=== PATIENT | female | born 1940 | race Caucasian/White ===

== ENCOUNTER 2018-04-13 06:06 | Observation (INO) | payer MEDICARE, BC ==
[~2018-04-13] VITALS: Ht 157.5 cm; Wt 59.7 kg
[~2018-04-13 06:06] MED LIST: ACIDOPHILUS1 EAC1 PO; ASPI81EC PO; CALACE667G; CHLO4; CIPR500 PO; CITA20 PO; CONESTTC VAG; ERGO400 PO; Flagyl500 MG PO; LEVFLO500 PO; METR500 PO; MULVITA PO; NITR100; PHENA200 PO; SULTRIDS PO; TOCO400 PO; VAGIFEM10 MCG; Vitamin B Comple1 EA PO
[2018-04-13 08:03] LABS: BASOPHILS ABSOLUTE AUTO 0.06 K/mm3 (0.00-0.23); BASOPHILS PERCENT AUTO 0 % (0-2); EOSINOPHILS ABSOLUTE AUTO 0.03 K/mm3 (0.00-0.68); EOSINOPHILS PERCENT AUTO 0 % (0-6); Hemoglobin 12.3 g/dL (11.5-16.0); IMMATURE GRAN ABSOLUTE AUTO 0.04 K/mm3 (0.00-0.10); IMMATURE GRAN PERCENT AUTO 0 % (0-1); LYMPHOCYTES ABSOLUTE AUTO 0.43 K/mm3 (0.84-5.20); LYMPHOCYTES PERCENT AUTO 3 % (21-46); MONOCYTES ABSOLUTE AUTO 0.82 K/mm3 (0.16-1.47); MONOCYTES PERCENT AUTO 6 % (4-13); Mean Corpuscular HGB Conc 33.2 g/dL (31.5-36.5); Mean Corpuscular Volume 93 fL (80-100); Mean Platelet Volume 10.4 fL (9.1-12.4); NEUTROPHILS ABSOLUTE AUTO 12.66 K/mm3 (1.96-9.15); NEUTROPHILS PERCENT AUTO 90 % (41-73); Platelet Count 224 K/mm3 (150-400); RDW Coefficient Variation 12.6 % (11.7-14.2); RDW Standard Deviation 43.3 fL (35.1-46.3); Red Blood Cell Count 3.97 M/mm3 (3.80-5.20); White Blood Cell Count 14.04 K/mm3 (4.00-11.30)
[2018-04-13 08:34] LABS: Alanine Aminotransfer (ALT/SGP 18 U/L (12-78); Albumin, Blood 3.9 g/dL (3.4-5.0); Albumin/Globulin Ratio 1.1 (0.8-1.8); Alk Phos 52 U/L (50-136); Anion Gap 10 mmol/L (6-16); Aspartate Aminotrans (AST/SGOT 22 U/L (12-37); Bilirubin, Total 0.6 mg/dL (0.1-1.0); Blood Urea Nitrogen 21 mg/dL (8-24); Bun/Creatinine Ratio 31.8 (12.0-20.0); CO2, Blood 25 mmol/L (21-32); Calcium, Blood 8.4 mg/dL (8.5-10.1); Chloride, Blood 104 mmol/L (98-108); Creatinine, Blood 0.66 mg/dL (0.40-1.00); Globulin, Blood 3.4 g/dL (2.2-4.0); Glomerular Filtration Rate >60 (60-); Glucose, Blood 128 mg/dL (70-99); Potassium, Blood 3.6 mmol/L (3.5-5.5); Sodium, Blood 139 mmol/L (136-145); Total Protein, Blood 7.3 g/dL (6.4-8.2); Troponin I <0.015 ng/mL (0.000-0.040)
[2018-04-13 09:22] LABS: Source, Urine Clean Catch
[2018-04-13 09:28] LABS: Bilirubin, Urine Neg (Neg); Blood, Urine 1+ (Neg); Glucose Qualitative, Urine Neg (Neg); Ketones, Urine Neg (Neg); Leukocyte Esterase, Urine Neg (Neg); Nitrite, Urine Neg (Neg); Protein, Urine 1+ (Neg); Urobilinogen, Urine NORM (Normal)
[2018-04-13 09:52] LABS: Appearance, Urine Clear (Clear); Color, Urine Yellow (P-Yellow)
[2018-04-13 09:54] LABS: Bacteria Not Seen /hpf; Red Blood Cells, Urine 0-2 /hpf (0-2); Squamous Epithelial Cells Few /hpf (Few); White Blood Cells, Urine Not Seen /hpf (0-5)
[2018-04-13 11:26] LABS: Adenovirus F 40/41 Not Detected (NOT DETECT); Astrovirus Not Detected (NOT DETECT); Campylobacter Sp Not Detected (NOT DETECT); Cryptosporidium Not Detected (NOT DETECT); Cyclospora Cayetanensis Not Detected (NOT DETECT); E. Coli O157 Not Detected (NOT DETECT); Entamoeba Histolytica Not Detected (NOT DETECT); Enteroaggregative E. coli-EAEC Not Detected (NOT DETECT); Enteropathogenic E. coli-EPEC Not Detected (NOT DETECT); Enterotoxigenic E. coli-ETEC Not Detected (NOT DETECT); Giardia Lamblia Not Detected (NOT DETECT); Plesiomonas Shigelloides Not Detected (NOT DETECT); Rotavirus A Not Detected (NOT DETECT); Salmonella Sp Not Detected (NOT DETECT); Sapovirus Not Detected (NOT DETECT); Shiga Toxin-prod E. coli-STEC Not Detected (NOT DETECT); Shigella/Enteroin E. coli-EIEC Not Detected (NOT DETECT); Vibrio Cholerae Not Detected (NOT DETECT); Vibrio Sp Not Detected (NOT DETECT); Yersinia Enterocolitica Not Detected (NOT DETECT)
[2018-04-13] MEDS ORDERED: ASPI81CH PO (12:58)
[2018-04-13 13:06] LABS: Norovirus GI/GII Detected (NOT DETECT)
[2018-04-14 05:03] LABS: BASOPHILS ABSOLUTE AUTO 0.03 K/mm3 (0.00-0.23); BASOPHILS PERCENT AUTO 1 % (0-2); EOSINOPHILS ABSOLUTE AUTO 0.06 K/mm3 (0.00-0.68); EOSINOPHILS PERCENT AUTO 1 % (0-6); Hematocrit 30.8 % (33.0-51.0); IMMATURE GRAN ABSOLUTE AUTO 0.01 K/mm3 (0.00-0.10); IMMATURE GRAN PERCENT AUTO 0 % (0-1); LYMPHOCYTES ABSOLUTE AUTO 0.87 K/mm3 (0.84-5.20); LYMPHOCYTES PERCENT AUTO 16 % (21-46); MONOCYTES ABSOLUTE AUTO 0.46 K/mm3 (0.16-1.47); MONOCYTES PERCENT AUTO 8 % (4-13); Mean Corpuscular HGB 30.1 pg (26.0-34.0); Mean Corpuscular HGB Conc 32.5 g/dL (31.5-36.5); Mean Corpuscular Volume 93 fL (80-100); Mean Platelet Volume 10.8 fL (9.1-12.4); NEUTROPHILS ABSOLUTE AUTO 4.13 K/mm3 (1.96-9.15); NEUTROPHILS PERCENT AUTO 74 % (41-73); Platelet Count 192 K/mm3 (150-400); RDW Coefficient Variation 13.1 % (11.7-14.2); RDW Standard Deviation 44.3 fL (35.1-46.3); Red Blood Cell Count 3.32 M/mm3 (3.80-5.20); White Blood Cell Count 5.56 K/mm3 (4.00-11.30)
[2018-04-14 05:25] LABS: Anion Gap 10 mmol/L (6-16); Blood Urea Nitrogen 10 mg/dL (8-24); Bun/Creatinine Ratio 21.2 (12.0-20.0); CO2, Blood 24 mmol/L (21-32); Calcium, Blood 7.6 mg/dL (8.5-10.1); Chloride, Blood 110 mmol/L (98-108); Creatinine, Blood 0.47 mg/dL (0.40-1.00); Glomerular Filtration Rate >60 (60-); Glucose, Blood 82 mg/dL (70-99); Potassium, Blood 3.2 mmol/L (3.5-5.5); Sodium, Blood 144 mmol/L (136-145)
[2018-04-14] MEDS ORDERED: ONDA4ODT SL (09:07)
[2018-04-14] MEDS ORDERED: Micro-K10 MEQ PO (09:08)
== END 2018-04-14 11:01 | disposition home or self-care (01) ==
LOC: ER 06:06 → MEDS 06:07 → ENPENDDIS 04-14 09:01 → MEDS 04-14 11:01
PROVIDERS: Emergency Medicine; Internal Medicine
DX: E86.9 Volume depletion, unspecified (principal); I95.9 Hypotension, unspecified; K52.9 Noninfective gastroenteritis and colitis, unspecified; E87.6 Hypokalemia; R74.8 Abnormal levels of other serum enzymes; D64.9 Anemia, unspecified; E78.5 Hyperlipidemia, unspecified; Z79.82 Long term (current) use of aspirin; Z79.899 Other long term (current) drug therapy; Z79.01 Long term (current) use of anticoagulants; Z88.5 Allergy status to narcotic agent
CPT/HCPCS: 36415; 74176; 80048; 80053; 81001; 83690; 84484; 85025; 87507; 93005; 93010; 96361; 96372; 96374; 96375; 99285-25; C9113; G0378; J1650; J2405; J7030

== ENCOUNTER 2020-07-25 10:24 | Emergency (ER) | payer MEDICARE ==
[~2020-07-25] VITALS: Ht 157.5 cm; Wt 68.0 kg
[~2020-07-25 10:24] MED LIST changes: +ASPI81CH PO; +Micro-K10 MEQ PO; +ONDA4ODT SL
[2020-07-25 11:04] LABS: BASOPHILS ABSOLUTE AUTO 0.11 K/mm3 (0.00-0.23); BASOPHILS PERCENT AUTO 2 % (0-2); EOSINOPHILS ABSOLUTE AUTO 0.51 K/mm3 (0.00-0.68); EOSINOPHILS PERCENT AUTO 8 % (0-6); Hematocrit 35.8 % (33.0-51.0); Hemoglobin 11.7 g/dL (11.5-16.0); IMMATURE GRAN ABSOLUTE AUTO 0.02 K/mm3 (0.00-0.10); IMMATURE GRAN PERCENT AUTO 0 % (0-1); LYMPHOCYTES ABSOLUTE AUTO 1.53 K/mm3 (0.84-5.20); LYMPHOCYTES PERCENT AUTO 24 % (21-46); MONOCYTES ABSOLUTE AUTO 0.63 K/mm3 (0.16-1.47); MONOCYTES PERCENT AUTO 10 % (4-13); Mean Corpuscular HGB 30.2 pg (26.0-34.0); Mean Corpuscular HGB Conc 32.7 g/dL (31.5-36.5); Mean Corpuscular Volume 92 fL (80-100); Mean Platelet Volume 10.9 fL (9.1-12.4); NEUTROPHILS ABSOLUTE AUTO 3.54 K/mm3 (1.96-9.15); NEUTROPHILS PERCENT AUTO 56 % (41-73); Platelet Count 224 K/mm3 (150-400); RDW Coefficient Variation 12.5 % (11.7-14.2); RDW Standard Deviation 42.6 fL (35.1-46.3); Red Blood Cell Count 3.88 M/mm3 (3.80-5.20); White Blood Cell Count 6.34 K/mm3 (4.00-11.30)
[2020-07-25 11:06] LABS: Source, Urine Clean Catch
[2020-07-25 11:16] LABS: Appearance, Urine Clear (Clear); Bilirubin, Urine Neg (Neg); Blood, Urine Neg (Neg); Color, Urine Yellow (P-Yellow); Glucose Qualitative, Urine Neg (Neg); Ketones, Urine Neg (Neg); Leukocyte Esterase, Urine Neg (Neg); Nitrite, Urine Neg (Neg); Protein, Urine Neg (Neg); Urobilinogen, Urine NORM (Normal)
[2020-07-25 11:17] LABS: Alanine Aminotransfer (ALT/SGP 19 U/L (12-78); Albumin, Blood 3.6 g/dL (3.4-5.0); Alk Phos 52 U/L (50-136); Anion Gap 5 mmol/L (6-16); Aspartate Aminotrans (AST/SGOT 22 U/L (12-37); Bilirubin, Total 0.3 mg/dL (0.1-1.0); Blood Urea Nitrogen 9 mg/dL (8-24); Bun/Creatinine Ratio 20.6 (12.0-20.0); CO2, Blood 27 mmol/L (21-32); Calcium, Blood 8.8 mg/dL (8.5-10.1); Chloride, Blood 102 mmol/L (98-108); Creatinine, Blood 0.44 mg/dL (0.40-1.00); Globulin, Blood 3.5 g/dL (2.2-4.0); Glomerular Filtration Rate >60 (60-); Glucose, Blood 92 mg/dL (70-99); Potassium, Blood 3.9 mmol/L (3.5-5.5); Sodium, Blood 134 mmol/L (136-145); Total Protein, Blood 7.1 g/dL (6.4-8.2)
[2020-07-25] MEDS ORDERED: MECL25 PO (12:18)
== END 2020-07-25 12:49 | disposition home or self-care (01) ==
LOC: ER 10:24
PROVIDERS: Emergency Medicine
DX: H81.10 Benign paroxysmal vertigo, unspecified ear (principal); Z79.4 Long term (current) use of insulin; Z79.82 Long term (current) use of aspirin; Z79.899 Other long term (current) drug therapy
CPT/HCPCS: 70450; 80053; 81003; 85025; 93005; 93010; 99285-25; A9270

== ENCOUNTER → 2021-04-29 | Outpatient (CLI) | payer MEDICARE ==
[~2021-04-29] MED LIST changes: +MECL25 PO
[2021-04-29 10:08] LABS: Source, Urine Clean Catch
[2021-04-29 13:10] LABS: Appearance, Urine Clear (Clear); Bilirubin, Urine Neg (Neg); Blood, Urine Neg (Neg); Glucose Qualitative, Urine Neg (Neg); Ketones, Urine Neg (Neg); Leukocyte Esterase, Urine Neg (Neg); Nitrite, Urine Neg (Neg); Protein, Urine Neg (Neg); Specific Gravity, Urine 1.005 (1.003-1.022); Urobilinogen, Urine NORM (Normal)
[2021-04-29 13:38] LABS: Color, Urine Pale Yellow (P-Yellow)
== END | disposition home or self-care (01) ==
LOC: LAB 10:07 → LAB SHORT 10:07
PROVIDERS: Internal Medicine
DX: N39.0 Urinary tract infection, site not specified (principal)
CPT/HCPCS: 81003

== ENCOUNTER 2021-08-05 11:24 | Emergency (ER) | payer OTHER, MEDICARE ==
[~2021-08-05] VITALS: Ht 152.4 cm; Wt 72.6 kg
[2021-08-05 11:56] LABS: BASOPHILS ABSOLUTE AUTO 0.09 K/mm3 (0.00-0.23); BASOPHILS PERCENT AUTO 1 % (0-2); EOSINOPHILS ABSOLUTE AUTO 0.31 K/mm3 (0.00-0.68); EOSINOPHILS PERCENT AUTO 4 % (0-6); Hematocrit 33.9 % (33.0-51.0); Hemoglobin 11.3 g/dL (11.5-16.0); IMMATURE GRAN ABSOLUTE AUTO 0.03 K/mm3 (0.00-0.10); IMMATURE GRAN PERCENT AUTO 0 % (0-1); LYMPHOCYTES ABSOLUTE AUTO 2.32 K/mm3 (0.84-5.20); LYMPHOCYTES PERCENT AUTO 32 % (21-46); MONOCYTES ABSOLUTE AUTO 0.67 K/mm3 (0.16-1.47); MONOCYTES PERCENT AUTO 9 % (4-13); Mean Corpuscular HGB Conc 33.3 g/dL (31.5-36.5); Mean Corpuscular Volume 90 fL (80-100); Mean Platelet Volume 10.5 fL (9.1-12.4); NEUTROPHILS PERCENT AUTO 53 % (41-73); Platelet Count 260 K/mm3 (150-400); RDW Standard Deviation 43.3 fL (35.1-46.3); Red Blood Cell Count 3.77 M/mm3 (3.80-5.20); White Blood Cell Count 7.32 K/mm3 (4.00-11.30)
[2021-08-05 12:23] LABS: Alanine Aminotransfer (ALT/SGP 28 U/L (12-78); Albumin, Blood 3.2 g/dL (3.4-5.0); Albumin/Globulin Ratio 0.9 (0.8-1.8); Alk Phos 51 U/L (50-136); Anion Gap 7 mmol/L (6-16); Aspartate Aminotrans (AST/SGOT 29 U/L (12-37); Bilirubin, Total 0.4 mg/dL (0.1-1.0); Blood Urea Nitrogen 15 mg/dL (8-24); Bun/Creatinine Ratio 24.4 (12.0-20.0); CO2, Blood 25 mmol/L (21-32); Calcium, Blood 8.2 mg/dL (8.5-10.1); Chloride, Blood 100 mmol/L (98-108); Creatinine, Blood 0.61 mg/dL (0.40-1.00); Globulin, Blood 3.6 g/dL (2.2-4.0); Glomerular Filtration Rate >60 (60-); Glucose, Blood 110 mg/dL (70-99); Potassium, Blood 3.6 mmol/L (3.5-5.5); Sodium, Blood 132 mmol/L (136-145); Total Protein, Blood 6.8 g/dL (6.4-8.2); Troponin I <0.015 ng/mL (0.000-0.040)
[2021-08-05 14:58] LABS: Source, Urine Clean Catch
[2021-08-05 15:07] LABS: Bilirubin, Urine Neg (Neg); Blood, Urine Neg (Neg); Glucose Qualitative, Urine Neg (Neg); Ketones, Urine Neg (Neg); Leukocyte Esterase, Urine Neg (Neg); Nitrite, Urine Neg (Neg); Protein, Urine Neg (Neg); Urobilinogen, Urine NORM (Normal)
[2021-08-05 15:25] LABS: Appearance, Urine Clear (Clear); Color, Urine Pale Yellow (P-Yellow)
[2021-08-05] MEDS ORDERED: HYDR1TAB94 PO (15:41)
== END 2021-08-05 15:59 | disposition home or self-care (01) ==
LOC: ER 11:24
PROVIDERS: Physician Assistant
DX: S42.254A Nondisplaced fracture of greater tuberosity of right humerus, initial encounter for closed fracture (principal); W01.10XA Fall on same level from slipping, tripping and stumbling with subsequent striking against unspecified object, initial encounter; Z88.5 Allergy status to narcotic agent; Z79.899 Other long term (current) drug therapy; Z79.82 Long term (current) use of aspirin
CPT/HCPCS: 29105; 71046; 73060; 80053; 81003; 82947; 83690; 84484; 85025; 93005; 93010; 99284-25; A9270; J7030

== ENCOUNTER 2021-08-05 17:03 | Emergency (ER) | payer MEDICARE ==
[~2021-08-05] VITALS: Ht 170.2 cm; Wt 95.2 kg
[~2021-08-05 17:03] MED LIST changes: +HYDR1TAB94 PO
== END 2021-08-05 19:12 | disposition home or self-care (01) ==
LOC: ER 17:03
DX: I95.9 Hypotension, unspecified (principal); S42.201A Unspecified fracture of upper end of right humerus, initial encounter for closed fracture; W19.XXXA Unspecified fall, initial encounter; Z79.899 Other long term (current) drug therapy; Z79.82 Long term (current) use of aspirin
CPT/HCPCS: 93005; 93010; 99284-25; A9270

== ENCOUNTER 2021-08-07 19:12 | Inpatient (IN) | payer MEDICARE ==
[~2021-08-07] VITALS: Ht 152.4 cm; Wt 76.0 kg
[2021-08-07] MEDS ORDERED: MERIBIN5 MG (19:40)
[2021-08-07] MEDS ORDERED: Calcium Carbon500 MG PO (19:41)
[2021-08-07 21:28] LABS: BASOPHILS ABSOLUTE AUTO 0.08 K/mm3 (0.00-0.23); BASOPHILS PERCENT AUTO 1 % (0-2); EOSINOPHILS ABSOLUTE AUTO 0.05 K/mm3 (0.00-0.68); EOSINOPHILS PERCENT AUTO 0 % (0-6); Hematocrit 32.2 % (33.0-51.0); Hemoglobin 10.7 g/dL (11.5-16.0); IMMATURE GRAN ABSOLUTE AUTO 0.06 K/mm3 (0.00-0.10); IMMATURE GRAN PERCENT AUTO 1 % (0-1); LYMPHOCYTES PERCENT AUTO 7 % (21-46); MONOCYTES ABSOLUTE AUTO 1.23 K/mm3 (0.16-1.47); MONOCYTES PERCENT AUTO 10 % (4-13); Mean Corpuscular HGB 30.4 pg (26.0-34.0); Mean Corpuscular HGB Conc 33.2 g/dL (31.5-36.5); Mean Corpuscular Volume 92 fL (80-100); Mean Platelet Volume 10.6 fL (9.1-12.4); NEUTROPHILS PERCENT AUTO 82 % (41-73); Platelet Count 218 K/mm3 (150-400); RDW Coefficient Variation 13.2 % (11.7-14.2); RDW Standard Deviation 44.3 fL (35.1-46.3); Red Blood Cell Count 3.52 M/mm3 (3.80-5.20); White Blood Cell Count 12.02 K/mm3 (4.00-11.30)
[2021-08-07 21:54] LABS: Alanine Aminotransfer (ALT/SGP 31 U/L (12-78); Albumin, Blood 2.9 g/dL (3.4-5.0); Albumin/Globulin Ratio 0.8 (0.8-1.8); Alk Phos 58 U/L (50-136); Anion Gap 6 mmol/L (6-16); Aspartate Aminotrans (AST/SGOT 31 U/L (12-37); Bilirubin, Total 0.3 mg/dL (0.1-1.0); Blood Urea Nitrogen 15 mg/dL (8-24); Bun/Creatinine Ratio 20.9 (12.0-20.0); CO2, Blood 27 mmol/L (21-32); Calcium, Blood 8.3 mg/dL (8.5-10.1); Chloride, Blood 105 mmol/L (98-108); Creatinine, Blood 0.72 mg/dL (0.40-1.00); Globulin, Blood 3.6 g/dL (2.2-4.0); Glomerular Filtration Rate >60 (60-); Glucose, Blood 129 mg/dL (70-99); Potassium, Blood 3.5 mmol/L (3.5-5.5); Sodium, Blood 138 mmol/L (136-145); Total Protein, Blood 6.5 g/dL (6.4-8.2); Troponin I <0.015 ng/mL (0.000-0.040)
[2021-08-07 23:37] LABS: Source, Urine Voided
[2021-08-07 23:39] LABS: Bilirubin, Urine Neg (Neg); Blood, Urine 1+ (Neg); Glucose Qualitative, Urine Neg (Neg); Ketones, Urine Neg (Neg); Leukocyte Esterase, Urine Neg (Neg); Nitrite, Urine Neg (Neg); Protein, Urine Neg (Neg); Urobilinogen, Urine NORM (Normal); pH, Urine 6.5 (5.0-8.0)
[2021-08-07 23:46] LABS: Appearance, Urine Clear (Clear); Color, Urine Yellow (P-Yellow)
[2021-08-07 23:47] LABS: Squamous Epithelial Cells Few /hpf (Few); White Blood Cells, Urine 0-2 /hpf (0-5)
[2021-08-07 23:48] LABS: Amorphous Light (0-Heavy); Bacteria Mod /hpf; Hyaline Casts 0-2 /lpf (0-2)
[2021-08-07 23:59] LABS: U Amphetamine Screen Not Detected; U Barbituate Screen Not Detected; U Benzodiazapine Screen Not Detected; U Buprenorphine Screen Not Detected; U Cannabinoids Screen Not Detected; U Cocaine Screen Not Detected; U Methadone Screen Not Detected; U Methamphetamine Screen Not Detected; U Opiates Screen DETECTED; U Oxycodone Screen Not Detected; U Phencyclidine Screen Not Detected; U Propoxyphene Screen Not Detected
[2021-08-08 03:19] LABS: SARS-Cov-2 (COVID-19) PCR, MMC POSITIVE (NEGATIVE)
--- NOTE | 2021-08-08 05:52 | NUR ---
PT ARRIVED FROM THE ER VIA GURNEY. PT IS ALERT AND ORIENTED X4 AND UNDERSTANDS OWN LIMITS. USES CALL LIGHT TO MAKE NEEDS KNOWN. PT KEPT ON BEDREST DUE TO RECENT FALLS/SYNCOPAL EPISODES. PT COVID TEST CAME BACK POSITIVE, AWARE AND DROPPLET ISO ORDERS IN. NO COUGH OR SOB NOTED. SATURATION IS GOOD. STAFF WILL CONT TO MONITOR.
[2021-08-08 07:59] LABS: BASOPHILS ABSOLUTE AUTO 0.05 K/mm3 (0.00-0.23); BASOPHILS PERCENT AUTO 1 % (0-2); EOSINOPHILS ABSOLUTE AUTO 0.17 K/mm3 (0.00-0.68); EOSINOPHILS PERCENT AUTO 2 % (0-6); Hematocrit 30.4 % (33.0-51.0); Hemoglobin 10.2 g/dL (11.5-16.0); IMMATURE GRAN ABSOLUTE AUTO 0.03 K/mm3 (0.00-0.10); IMMATURE GRAN PERCENT AUTO 0 % (0-1); LYMPHOCYTES ABSOLUTE AUTO 1.36 K/mm3 (0.84-5.20); LYMPHOCYTES PERCENT AUTO 15 % (21-46); MONOCYTES PERCENT AUTO 10 % (4-13); Mean Corpuscular HGB 30.6 pg (26.0-34.0); Mean Corpuscular HGB Conc 33.6 g/dL (31.5-36.5); Mean Corpuscular Volume 91 fL (80-100); Mean Platelet Volume 10.8 fL (9.1-12.4); NEUTROPHILS ABSOLUTE AUTO 6.37 K/mm3 (1.96-9.15); NEUTROPHILS PERCENT AUTO 72 % (41-73); Platelet Count 200 K/mm3 (150-400); RDW Coefficient Variation 13.2 % (11.7-14.2); RDW Standard Deviation 43.8 fL (35.1-46.3); Red Blood Cell Count 3.33 M/mm3 (3.80-5.20); White Blood Cell Count 8.88 K/mm3 (4.00-11.30)
[2021-08-08 08:18] LABS: Alanine Aminotransfer (ALT/SGP 31 U/L (12-78); Albumin, Blood 2.7 g/dL (3.4-5.0); Albumin/Globulin Ratio 0.8 (0.8-1.8); Alk Phos 56 U/L (50-136); Anion Gap 5 mmol/L (6-16); Aspartate Aminotrans (AST/SGOT 29 U/L (12-37); Bilirubin, Total 0.5 mg/dL (0.1-1.0); Blood Urea Nitrogen 8 mg/dL (8-24); Bun/Creatinine Ratio 19.3 (12.0-20.0); CO2, Blood 27 mmol/L (21-32); Calcium, Blood 8.2 mg/dL (8.5-10.1); Chloride, Blood 109 mmol/L (98-108); Creatinine, Blood 0.41 mg/dL (0.40-1.00); Globulin, Blood 3.5 g/dL (2.2-4.0); Glomerular Filtration Rate >60 (60-); Glucose, Blood 100 mg/dL (70-99); Potassium, Blood 3.3 mmol/L (3.5-5.5); Sodium, Blood 141 mmol/L (136-145); Total Protein, Blood 6.2 g/dL (6.4-8.2)
--- NOTE | 2021-08-08 11:44 | NUR ---
ECHOCARDIOGRAM COMPLETE
--- NOTE | 2021-08-08 18:43 | NUR ---
PT AAOX4,VITALS STABLE,MEDICATED WITH PAIN FOR RT HAND FX NEEDED, ASSISTED WITH ADLS.SEEN BY MD ORDERS IN PLACE INCLUDING STRESS TEST FOR TOMORROW,NPO AFTER MIDNIGHT.PT UPDATED.CALL LIGHT IN PLACE WILL CONT TO MONITOR.
[2021-08-09 04:57] LABS: BASOPHILS ABSOLUTE AUTO 0.06 K/mm3 (0.00-0.23); BASOPHILS PERCENT AUTO 1 % (0-2); EOSINOPHILS ABSOLUTE AUTO 0.32 K/mm3 (0.00-0.68); EOSINOPHILS PERCENT AUTO 5 % (0-6); Hematocrit 31.5 % (33.0-51.0); Hemoglobin 10.2 g/dL (11.5-16.0); IMMATURE GRAN ABSOLUTE AUTO 0.02 K/mm3 (0.00-0.10); IMMATURE GRAN PERCENT AUTO 0 % (0-1); LYMPHOCYTES ABSOLUTE AUTO 1.75 K/mm3 (0.84-5.20); LYMPHOCYTES PERCENT AUTO 26 % (21-46); MONOCYTES ABSOLUTE AUTO 0.77 K/mm3 (0.16-1.47); MONOCYTES PERCENT AUTO 11 % (4-13); Mean Corpuscular HGB 29.8 pg (26.0-34.0); Mean Corpuscular HGB Conc 32.4 g/dL (31.5-36.5); Mean Corpuscular Volume 92 fL (80-100); Mean Platelet Volume 11.2 fL (9.1-12.4); NEUTROPHILS ABSOLUTE AUTO 3.95 K/mm3 (1.96-9.15); NEUTROPHILS PERCENT AUTO 57 % (41-73); Platelet Count 211 K/mm3 (150-400); RDW Coefficient Variation 13.4 % (11.7-14.2); Red Blood Cell Count 3.42 M/mm3 (3.80-5.20); White Blood Cell Count 6.87 K/mm3 (4.00-11.30)
--- NOTE | 2021-08-09 05:16 | NUR ---
PT REMAINS ALERT AND ORIENTED X4, ON BEDREST FROM PRIOR SYNCOPAL EPISODES. PT IS COVID POS, HOWEVER REMAINS SYMPTOM FREE. PT HAS BEEN NPO SINCE MIDNIGHT FOR STRESS TEST. WILL ALERT DAY NURSE. NO OTHER CHANGES TO REPORT OVER NIGHT.
[2021-08-09 05:18] LABS: Anion Gap 6 mmol/L (6-16); Blood Urea Nitrogen 13 mg/dL (8-24); Bun/Creatinine Ratio 26.3 (12.0-20.0); CO2, Blood 25 mmol/L (21-32); Calcium, Blood 8.5 mg/dL (8.5-10.1); Chloride, Blood 109 mmol/L (98-108); Creatinine, Blood 0.49 mg/dL (0.40-1.00); Glomerular Filtration Rate >60 (60-); Glucose, Blood 98 mg/dL (70-99); Magnesium, Blood 2.1 mg/dL (1.6-2.4); Sodium, Blood 140 mmol/L (136-145)
--- NOTE | 2021-08-09 11:37 | NUR ---
PT AAOX4, NO ACUTE DISTRESS NOTED,VITALS WNL, POC REVIEWED WITH PATIENT, STARTED ON STRESS TEST THIS MORNING ORDERED, SEEN BY MD AWAITING TEST RESULTS BEFORE MAKING FINAL D/C DECISIONS. PT REFUSED TO EAT BREAKFAST EVEN AFTER ACCOUNTS RECEIVABLE PROCESSOR SAID IS OK TO EAT. SHE SAID SHE IS WAITING UNTIL ALL TESTS IS DONE.CALL LIGHT WITHIN REACH, ASSISTED TO BR NEEDED,OR BED SAMPSON.WILL CONTINUE TO MONITOR.
--- NOTE | 2021-08-09 15:07 | NUR ---
FAMILY CALLED (SON) AND CONCERNED ABOUT PT NOT BEEN ABLE TO TAKE CARE OF HERSELF AT HOME AND WILL WANT HER PLACED IN [facility], CN UPDATED AND LANGUAGE AND LITERATURE DIVISION CHAIR WELL. PT DONE WITH STRESS TEST.SEEN BY PT, ASSISTED TO BR NEEDED.CALL LIGHT WITHIN REACH.
--- NOTE | 2021-08-09 18:27 | NUR ---
PT DONE WITH STRESS TEST, AWAITING D/C'D.MD WANTS TO D/C PT HOME BUT PT AND FAMILY STATES THERE'S NO ONE HOME TO TAKE CARE OF HER SO THEY PREFERRED SN[facility].MD WORING ON D/C PLANS.PT REMAIN STABLE, COMPLETE ASSIST OF 1 FOR ADLS, SET UP MEALS. SHE COMPLETELY DEPENDS ON HELP FROM STAFF HER RIGHT HAND IS AFFECTED.NO ACUTE DISTRESS NOTED, CALL LIGHT WITHIN REACH, PT WAS ASSISTED INTO BED SIDE CHAIR AND ASSISTED TO BED NEEDED. WILL CONT TO [facility].
--- NOTE | 2021-08-10 04:16 | NUR ---
INFORMATION TECHNOLOGY ANALYST SUMMARY PATIENT HAD A CALM SHIFT. HER VITALS WERE STABLE. SHE STATED HER PAIN IS BEARABLE ALLTHROUGH THE NIGHT. WILL CONTINUE TO MONITOR HER.
--- NOTE | 2021-08-10 17:23 | NUR ---
SUMMARY PT SITTING UP IN BED WATCHING TV, PT HAS BEEN PLEASANT AND COOPERATIVE WITH CARE T/O THE DAY, PT MED PER EMAR FOR R ARM PAIN, PT UP WITH 1P ASSIST, C/O CONSTIPATION, MED PER EMAR, PT WITH LIGHT-HEADEDNESS WITH STRAINING TO HAVE A BM, AWARE, PT WORKED WITH PT/OT, VSS, WILL CONTINUE TO MONITOR
--- NOTE | 2021-08-11 04:10 | NUR ---
JEWELRY MAKER SUMMARY PATIENT HAD A FAIR SHIFT. SHE WAS STILL VERY IMPACTED. THE AUTOMOBILE PARKER DID DIGITAL DISIMPACTION BUT WAS ABLE TO GET OUT A FEW. PATIENT WAS ENCOURAGED TO SIT ON THE BEDSIDE COMMODE IN ORDER TO TRY AND EMPTY HER BOWEL WHILE AN ORDER FOR FLEET ENAMA IS PLACED BY THE MD. THIS RN CALLED THE MD WHO PLACED AN ORDER FOR FLEET ENEMA AND DAILY MIRALAX, BUT PATIENT EVENTUALLY WENT ON HER OWN. NO OTHER COMPLAINTS, WILL CONTINUE TO MONITOR PATIENT.
[2021-08-11 06:13] LABS: Anion Gap 8 mmol/L (6-16); Blood Urea Nitrogen 17 mg/dL (8-24); Bun/Creatinine Ratio 33.4 (12.0-20.0); CO2, Blood 24 mmol/L (21-32); Calcium, Blood 8.5 mg/dL (8.5-10.1); Chloride, Blood 106 mmol/L (98-108); Creatinine, Blood 0.51 mg/dL (0.40-1.00); Glomerular Filtration Rate >60 (60-); Glucose, Blood 104 mg/dL (70-99); Sodium, Blood 138 mmol/L (136-145)
[2021-08-11] MEDS ORDERED: B-COMPLEX WITH1 EAC2 PO (10:51)
[2021-08-11] MEDS ORDERED: KETO10 PO (10:51)
[2021-08-11] MEDS ORDERED: LOSA25 PO (10:52)
[2021-08-11] MEDS ORDERED: MIRALAX17 GM PO (10:53)
[2021-08-11] MEDS ORDERED: DOCU100 PO (10:54)
--- NOTE | 2021-08-11 14:54 | NUR ---
PATIENT DISCHARGED PATIENT LEFT VIA WHEEL CHAIR VAN TO [facility]. CHECKED PATIENT ROOM AND BATHROOM FOR ALL BELONGINGS BEFORE PATIENT LEAVING. AFTER PATIENT LEFT CALLED REPORT TO RN TAKING PATIENT AT [facility]. ALL QUESTIONED ANSWERED.
== END 2021-08-11 14:44 | DRG 312 ==
LOC: ER 19:12 → MEDS 19:13
PROVIDERS: Emergency Medicine; Family Medicine; Internal Medicine Cardiovascular Disease; ADMIT Internal Medicine
DX: R55 Syncope and collapse (principal); U07.1 COVID-19; S42.291A Other displaced fracture of upper end of right humerus, initial encounter for closed fracture; F32.A Depression, unspecified; E78.5 Hyperlipidemia, unspecified; Z66 Do not resuscitate; E66.9 Obesity, unspecified; Z60.2 Problems related to living alone; D64.9 Anemia, unspecified; E87.6 Hypokalemia; I83.93 Asymptomatic varicose veins of bilateral lower extremities; R42 Dizziness and giddiness; K59.00 Constipation, unspecified; W18.30XA Fall on same level, unspecified, initial encounter; Z88.5 Allergy status to narcotic agent; Z90.49 Acquired absence of other specified parts of digestive tract; Z90.710 Acquired absence of both cervix and uterus; Z98.890 Other specified postprocedural states; Z90.89 Acquired absence of other organs; Z87.440 Personal history of urinary (tract) infections; Z79.82 Long term (current) use of aspirin; Z79.899 Other long term (current) drug therapy; Z28.21 Immunization not carried out because of patient refusal
CPT/HCPCS: 36415; 70450; 73080; 73090; 78452; 80048; 80053; 80400; 81001; 82533; 82947; 83605; 83735; 84145; 84439; 84443; 84484; 85025; 87086; 93005; 93010; 93017; 93246; 93306; 93880; 96372; 97110; 97116; 97162; 97530; 99285-25; A9270; A9500; G0378; J0706; J0834; J1650; J2785; J7030; U0004

== ENCOUNTER 2021-10-07 11:02 | Day surgery (SDC) | payer MEDICARE ==
[~2021-10-07] VITALS: Ht 157.5 cm; Wt 73.3 kg
[~2021-10-07 11:02] MED LIST changes: +B-COMPLEX WITH1 EAC2 PO; +Calcium Carbon500 MG PO; +DOCU100 PO; +KETO10 PO; +LOSA25 PO; +MERIBIN5 MG; +MIRALAX17 GM PO
--- NOTE | 2021-10-07 12:30 | NUR ---
PATIENT WAS BROUGHT BACK TO THE PROCEDURE ROOM. NURSING ASSESSMENT PERFORMED. PATIENT WAS ASSISTED INTO A [place]OW[place] ND PLACED ON THE MONITOR. PATIENT IN THE BED. SIDE RAILS UP X TWO. PROCEDURE TABLE SET UP FOR LOOP RECORDER IMPLANT. CONSENT VERIFIED. DR. FELICIANO TO THE BEDSIDE. [employer] TO THE BEDSIDE. VVS. TIME OUT PERFORMED. PROCEDURE PERFORMED UNDER STERILE TECHNIQUE. PATEITN TOLERATED WELL. PATIENT TEACHING DONE POST PROCEDURE.DRESSING PLACED OVER SITE BY MD. PATIENT DISCHARGE HOME WITH NIECE VIA WHEELCHAIR. ALL BELONGINGS RETAINED. DISCHARGE INSTRUCTIONS IN HAND WITH FOLLOW UP APPOINTMENT.
[2021-10-11] MEDS ORDERED: SULTRIDS PO (13:35)
== END 2021-10-07 12:00 | disposition home or self-care (01) ==
LOC: MHTC 11:02
DX: R55 Syncope and collapse (principal); I49.1 Atrial premature depolarization; I47.1 Supraventricular tachycardia; S42.301D Unspecified fracture of shaft of humerus, right arm, subsequent encounter for fracture with routine healing; Z91.81 History of falling; I27.20 Pulmonary hypertension, unspecified; D64.9 Anemia, unspecified; I10 Essential (primary) hypertension; E66.3 Overweight; Z87.440 Personal history of urinary (tract) infections; Z86.16 Personal history of COVID-19; Z88.5 Allergy status to narcotic agent; Z66 Do not resuscitate; Z68.29 Body mass index [BMI] 29.0-29.9, adult; W19.XXXD Unspecified fall, subsequent encounter
CPT/HCPCS: 33285; C1764

== ENCOUNTER 2022-05-16 07:45 | Emergency (ER) | payer MEDICARE ==
[~2022-05-16] VITALS: Ht 172.7 cm; Wt 83.9 kg
[2022-05-16 08:32] LABS: BASOPHILS PERCENT AUTO 1 % (0-2); EOSINOPHILS ABSOLUTE AUTO 0.35 K/mm3 (0.00-0.68); EOSINOPHILS PERCENT AUTO 4 % (0-6); Hematocrit 38.5 % (33.0-51.0); Hemoglobin 12.4 g/dL (11.5-16.0); IMMATURE GRAN ABSOLUTE AUTO 0.03 K/mm3 (0.00-0.10); IMMATURE GRAN PERCENT AUTO 0 % (0-1); LYMPHOCYTES ABSOLUTE AUTO 1.61 K/mm3 (0.84-5.20); LYMPHOCYTES PERCENT AUTO 20 % (21-46); MONOCYTES PERCENT AUTO 9 % (4-13); Mean Corpuscular HGB 29.8 pg (26.0-34.0); Mean Corpuscular HGB Conc 32.2 g/dL (31.5-36.5); Mean Corpuscular Volume 93 fL (80-100); Mean Platelet Volume 10.5 fL (9.1-12.4); NEUTROPHILS ABSOLUTE AUTO 5.11 K/mm3 (1.96-9.15); NEUTROPHILS PERCENT AUTO 65 % (41-73); Platelet Count 246 K/mm3 (150-400); RDW Coefficient Variation 12.8 % (11.7-14.2); RDW Standard Deviation 43.8 fL (35.1-46.3); Red Blood Cell Count 4.16 M/mm3 (3.80-5.20)
[2022-05-16 08:50] LABS: Bun/Creatinine Ratio 25.5 (12.0-20.0); Calcium, Blood 8.9 mg/dL (8.5-10.1); Creatinine, Blood 0.67 mg/dL (0.40-1.00); Magnesium, Blood 2.1 mg/dL (1.6-2.4); Potassium, Blood 4.1 mmol/L (3.5-5.5)
== END 2022-05-16 12:16 | disposition home or self-care (01) ==
LOC: ER 07:45
PROVIDERS: Student in an Organized Health Care Education/Training Program
DX: R55 Syncope and collapse (principal); F32.A Depression, unspecified; Z79.899 Other long term (current) drug therapy; Z79.82 Long term (current) use of aspirin; Z88.5 Allergy status to narcotic agent
CPT/HCPCS: 36415; 71045; 80048; 83735; 83880; 84484; 85025; 93005; 93010; 93291; 96374; 99284-25; A9270; J1885

== ENCOUNTER 2023-06-25 14:13 | Emergency (ER) | payer MEDICARE, BC ==
[~2023-06-25] VITALS: Ht 160 cm; Wt 78.0 kg
[2023-06-25 14:16] VITALS: BP 122/55
== END 2023-06-25 15:56 | disposition home or self-care (01) ==
LOC: ER 14:13
DX: S93.602A Unspecified sprain of left foot, initial encounter (principal); W18.30XA Fall on same level, unspecified, initial encounter
CPT/HCPCS: 73630; 99283-25

== ENCOUNTER → 2023-08-24 | Outpatient (CLI) | payer MEDICARE | END | disposition home or self-care (01) | LOC: LAB SHORT 17:46 → LAB 17:46 | DX: N39.0 Urinary tract infection, site not specified (principal) | CPT/HCPCS: 87077; 87086; 87186 ==

== ENCOUNTER 2024-09-10 02:01 | Inpatient (IN) | payer MEDICARE ==
[~2024-09-10] VITALS: Ht 160 cm; Wt 79.2 kg
[2024-09-10] MEDS ORDERED: Ipratropium/Albuterol SulF 2.5-0.5MG/3 ML Amp INH ONE (03:45)
[2024-09-10 03:57] LABS: BASOPHILS ABSOLUTE AUTO 0.05 K/mm3 (0.00-0.23); BASOPHILS PERCENT AUTO 0 % (0-2); EOSINOPHILS ABSOLUTE AUTO 0.02 K/mm3 (0.00-0.68); EOSINOPHILS PERCENT AUTO 0 % (0-6); Hematocrit 39.7 % (33.0-51.0); Hemoglobin 12.8 g/dL (11.5-16.0); IMMATURE GRAN ABSOLUTE AUTO 0.03 K/mm3 (0.00-0.10); IMMATURE GRAN PERCENT AUTO 0 % (0-1); LYMPHOCYTES ABSOLUTE AUTO 1.39 K/mm3 (0.84-5.20); LYMPHOCYTES PERCENT AUTO 12 % (21-46); MONOCYTES ABSOLUTE AUTO 1.31 K/mm3 (0.16-1.47); MONOCYTES PERCENT AUTO 12 % (4-13); Mean Corpuscular HGB 29.8 pg (26.0-34.0); Mean Corpuscular HGB Conc 32.2 g/dL (31.5-36.5); Mean Corpuscular Volume 93 fL (80-100); NEUTROPHILS ABSOLUTE AUTO 8.49 K/mm3 (1.96-9.15); NEUTROPHILS PERCENT AUTO 75 % (41-73); NRBC ABSOLUTE 0.02 K/mm3 (0.00-0.02); NRBC Auto 0.2 /100 WBC (0.0-0.2); Platelet Count 199 K/mm3 (150-400); Red Blood Cell Count 4.29 M/mm3 (3.80-5.20); White Blood Cell Count 11.29 K/mm3 (4.00-11.30)
[2024-09-10] MEDS ORDERED: SENNA LAXATIVE8.6 MG PO (04:09)
[2024-09-10] MEDS ORDERED: OMEPRAZOLE MAGN20 MG PO (04:10)
[2024-09-10] MEDS ORDERED: METOPROLOL SUCC25 MG PO (04:10)
[2024-09-10] MEDS ORDERED: ZYRTEC10 M2 PO (04:11)
[2024-09-10] MEDS ORDERED: LOPE2C PO (04:12)
[2024-09-10 04:18] LABS: Albumin, Blood 3.2 g/dL (3.4-5.0); Albumin/Globulin Ratio 0.8 (0.8-1.8); Bilirubin, Total 0.3 mg/dL (0.1-1.0); Bun/Creatinine Ratio 22.4 (12.0-20.0); Calcium, Blood 8.5 mg/dL (8.5-10.1); Creatinine, Blood 0.76 mg/dL (0.40-1.00); Potassium, Blood 3.8 mmol/L (3.5-5.5); Total Protein, Blood 7.2 g/dL (6.4-8.2)
[2024-09-10 04:48] LABS: Influenza B, PCR NEGATIVE (NEGATIVE); Resp Syncytial Virus, PCR NEGATIVE (NEGATIVE); SARS-Cov-2 (COVID-19) PCR, MMC NEGATIVE (NEGATIVE)
[2024-09-10] MEDS ORDERED: CefTRIAXone Sodium 1,000 MG in NS 50 ML IV ONE (05:00)
[2024-09-10] MEDS ORDERED: Azithromycin 500 MG in NS 250 ML IV ONE (05:00)
[2024-09-10 05:01] LABS: Source, Urine Straight Cath
[2024-09-10 05:18] LABS: Bilirubin, Urine Neg (Neg); Blood, Urine 3+ (Neg); Glucose Qualitative, Urine Neg (Neg); Ketones, Urine Neg (Neg); Leukocyte Esterase, Urine Neg (Neg); Nitrite, Urine Neg (Neg); Protein, Urine 3+ (Neg); Specific Gravity, Urine 1.025 (1.003-1.022); Urobilinogen, Urine NORM (Normal)
[2024-09-10 05:20] LABS: Influenza A, PCR POSITIVE (NEGATIVE)
[2024-09-10 05:26] LABS: Appearance, Urine Hazy (Clear); Color, Urine Yellow (P-Yellow)
[2024-09-10 05:29] LABS: Bacteria Many /hpf; Squamous Epithelial Cells Few /hpf (Few); White Blood Cells, Urine 0-2 /hpf (0-5)
[2024-09-10] MEDS ORDERED: FLU VACC TS2024-25(6MOS UP)/PF 45 MCG/0.5 ML SYRINGE IM ONE (06:15)
[2024-09-10] MEDS ORDERED: Oseltamivir Phosphate 75 MG Cap PO ONE (06:35)
[2024-09-10 15:42] VITALS: BP 122/60
[2024-09-10] MEDS ORDERED: CALCIUM 500-VI1 EAC6 PO (16:44)
[2024-09-10] MEDS ORDERED: CRANBERRY VIT PO (16:46)
[2024-09-10] MEDS ORDERED: VITAMIN B121000 MCG PO (16:50)
[2024-09-10] MEDS ORDERED: THERA-D2000 UNIT PO (16:51)
[2024-09-10] MEDS ORDERED: Acetaminophen325 M1 PO (16:52)
[2024-09-10] MEDS ORDERED: BENEFIBER PO (16:54)
[2024-09-10] MEDS ORDERED: BISA10S PR (16:56)
[2024-09-10] MEDS ORDERED: DULCOLAX400 MG/5 M PO (16:57)
--- NOTE | 2024-09-10 17:06 | NUR ---
ADMISSION NOTE: PATIENT ARRIVED TO THE UNIT AT 1530 VIA GURNEY. SHE WAS ABLE TO TRANSFER TO THE BED WITH MINIMAL ASSISTANCE. SHE IS ON NASAL CANNUAL OXYGEN AT 2 LITERS; OXYGEN SATURATION AT 96%. SHE IS CONFUSED, BUT PLEASANT, AND MAKES NEEDS KNOWN. SHE IS IN BED, BED ALARM ON, CALL LIGHT WITHIN REACH, NO SIGNS OR SYMPTOMS OF DISTRESS, PLAN OF CARE ONGOING.
[2024-09-10] MEDS ORDERED: Bisacodyl 10 MG Supp PR PRN (17:55)
[2024-09-10] MEDS ORDERED: Magnesium Hydroxide Conc 10 ML UDC PO PRN (17:55)
[2024-09-10] MEDS ORDERED: Loperamide HCl 2 MG Cap PO PRN (18:05)
[2024-09-10] MEDS ORDERED: Acetaminophen 325 MG TABLET PO PRN (18:05)
[2024-09-10] MEDS ORDERED: Psyllium 1 EA Pack PO PRN (18:40)
[2024-09-10 20:45] VITALS: BP 141/75
[2024-09-10] MEDS ORDERED: Oseltamvir Phosphate 30 MG Cap PO SCH (21:00)
[2024-09-11 03:57] VITALS: BP 116/69
[2024-09-11] MEDS ORDERED: Omeprazole 20 MG CapCR PO SCH (06:00)
--- NOTE | 2024-09-11 06:43 | NUR ---
SHIFT SUMMARY. PATIENT IS A&OX2 WITH CONFUSION. PATIENT IS PLEASANTLY CONFUSED BUT CALLS APPROPRIATELY. PATIENT IS UP WITH 1P ASSISTANCE, GAIT IS STEADY. PATIENT DENIES SOB WHEN UP WALKING. PATIENT HAS 2LPM VIA NASAL CANULA SATTING >93%-RA AT BASELINE. PATIENT STATES SHE "DOESNT KNOW WHY SHE IS NOT OVER HER SICKNESS, BECAUSE IT HAS BEEN A WHILE NOW". PATIENT UP TO BATHROOM. SAMPLE COLLECTED THIS SHIFT. BED IS LOCKED IN THE LOWEST POSITION WITH CALLING LIGHT IN REACH.
[2024-09-11 07:31] VITALS: BP 126/70
[2024-09-11 08:56] LABS: Albumin, Blood 2.8 g/dL (3.4-5.0); Anion Gap 10 mmol/L (3-11); Blood Urea Nitrogen 15 mg/dL (8-24); Bun/Creatinine Ratio 27.1 (12.0-20.0); CO2, Blood 28 mmol/L (21-32); Calcium, Blood 8.3 mg/dL (8.5-10.1); Chloride, Blood 105 mmol/L (98-108); Creatinine, Blood 0.55 mg/dL (0.40-1.00); Glomerular Filtration Rate 89 (60-); Glucose, Blood 106 mg/dL (70-99); Phosphorus, Blood 3.2 mg/dL (2.5-4.9); Potassium, Blood 3.7 mmol/L (3.5-5.5); Sodium, Blood 139 mmol/L (136-145)
[2024-09-11] MEDS ORDERED: Calcium 500 MG/Vit D 200 Units Tab PO SCH (09:00)
[2024-09-11] MEDS ORDERED: Cholecalciferol 1000 Unit Tablet (=25MCG) PO SCH (09:00)
[2024-09-11] MEDS ORDERED: Enoxaparin 40 MG/0.4 ML SYR SC SCH (09:00)
[2024-09-11] MEDS ORDERED: Cyanocobalamin 500 MCG Tab PO SCH (09:00)
[2024-09-11] MEDS ORDERED: Azithromycin 500 MG in NS 250 ML IV SCH (09:00)
[2024-09-11] MEDS ORDERED: Vitamin B Cmplx/Vit C/Folic Ac 1 Tab PO SCH (09:00)
[2024-09-11] MEDS ORDERED: Biotin 5 MG Cap PO SCH (09:00)
[2024-09-11] MEDS ORDERED: Aspirin 81 MG Chew PO SCH (09:00)
[2024-09-11] MEDS ORDERED: CefTRIAXone Sodium 1,000 MG in NS 100 ML IV SCH (09:00)
[2024-09-11] MEDS ORDERED: Polyethylene Glycol 3350 17 gm PO SCH (09:00)
[2024-09-11] MEDS ORDERED: Loratadine 10 MG Tab PO SCH (09:00)
[2024-09-11] MEDS ORDERED: Citalopram Hydrobromide 20 MG Tab PO SCH (09:00)
[2024-09-11] MEDS ORDERED: Metoprolol Succinate 25 MG TABCR PO SCH (09:00)
[2024-09-11] MEDS ORDERED: Cranberry Extract 250MG W/30 MG Vitamin C Tab PO SCH (09:00)
[2024-09-11] MEDS ORDERED: Sennosides 8.6 MG Tab PO SCH (09:00)
[2024-09-11] MEDS ORDERED: NS 250 ML IV PRN (09:35)
[2024-09-11 15:07] VITALS: BP 124/78
--- NOTE | 2024-09-11 17:36 | NUR ---
SHIFT SUMMARY PT A&OX2, CONFUSED, VSS, AMB W/ 1P SBA, TOLERATING PO, VOIDING, AND DENIED PAIN. PT PULLED IV OUT DURING EPISODE OF CONFUSION, BUT EASILY REORIENTABLE. NO OTHER ACUTE CHANGES. CALL LIGHT WITHIN REACH AND BED ALARM ON.
[2024-09-11 21:12] VITALS: BP 121/46
--- NOTE | 2024-09-12 04:29 | NUR ---
SHIFT SUMMARY. PATIENT IS A&OX2-WITH INCREASED CONFUSION FROM THE PREVIOUS MANAGER DIGITAL. PATIENT CONTINUES TO HAVE HACKING COUGH-PATIENT REPORTS SHE HAS NOT COUGHED ANYTHING UP WHEN ASKED. PATIENT PULLED OUT IV WHEN CONFUSED THINKING SHE WAS GOING HOME-PATIENT WANTED TO GET DRESSED AND CLEAN THE ROOM FOR SOMEONE ELSE. PATIENT IS PLEASANTLY CONFUSED AND EASILY REORIENTED. BED IS LOCKED IN THE LOWEST POSITION WITH CALL LIGHT IN REACH. CARE IS ONGOING.
[2024-09-12 05:36] VITALS: BP 121/81
[2024-09-12 07:38] VITALS: BP 132/68
[2024-09-12] MEDS ORDERED: Oseltamvir Phosphate 30 MG Cap PO SCH (09:00)
[2024-09-12] MEDS ORDERED: CEFU500T30 PO (11:11)
[2024-09-12] MEDS ORDERED: OSEL75CA PO (11:12)
[2024-09-12] MEDS ORDERED: VISBIOME 112.51 EACH PO (11:13)
--- NOTE | 2024-09-12 12:17 | NUR ---
PT DISCHARGED THE PT AND HER FAMILY VERBALIZED UNDERSTANDING OF THE DC INSTRUCTIONS. THE PT WAS TRANSFERED VIA WHEELCHAIR TO THE FRONT VIA WHEELCHAIR. BELONGINGS RELEASED TO THE PT AND HER
[2024-09-13] MEDS ORDERED: ESTROGENS CONJUGATED VAG SCH (09:00)
== END 2024-09-12 12:20 | disposition home health service (06) | DRG 193 ==
LOC: ER 02:01 → ERHOLD 02:02 → MEDS 02:02 → ENPENDDIS 09-12 11:19 → MEDS 09-12 12:20
PROVIDERS: Emergency Medicine; Internal Medicine; ADMIT Internal Medicine
DX: J10.00 Influenza due to other identified influenza virus with unspecified type of pneumonia (principal); J96.01 Acute respiratory failure with hypoxia; N39.0 Urinary tract infection, site not specified; F03.93 Unspecified dementia, unspecified severity, with mood disturbance; B96.20 Unspecified Escherichia coli [E. coli] as the cause of diseases classified elsewhere; I10 Essential (primary) hypertension; K21.9 Gastro-esophageal reflux disease without esophagitis; I27.20 Pulmonary hypertension, unspecified; Z66 Do not resuscitate; Z88.5 Allergy status to narcotic agent; Z88.8 Allergy status to other drugs, medicaments and biological substances; Z79.899 Other long term (current) drug therapy; Z79.82 Long term (current) use of aspirin; Z90.710 Acquired absence of both cervix and uterus; Z90.49 Acquired absence of other specified parts of digestive tract; Z90.89 Acquired absence of other organs; Z98.890 Other specified postprocedural states; Z87.19 Personal history of other diseases of the digestive system
CPT/HCPCS: 0241U; 36415; 51701; 71046; 80053; 80069; 81001; 83605; 84145; 85025; 87070; 87077; 87086; 87186; 87205; 87449; 93005; 93010; 93306; 94640; 94664; 94760; 96365; 96375; 97110; 97116; 97161; 97165; 97535; 99285-25; A9270; G0378; J0456; J0696; J1650; J7050